=== PATIENT | male | born 1985 | race Caucasian/White ===

== ENCOUNTER 2021-05-20 20:51 | Emergency (ER) | payer BC ==
[~2021-05-20] VITALS: Ht 177.8 cm; Wt 100.0 kg
[2021-05-20 21:18] VITALS: TEMP 98.1
[2021-05-20] MEDS ORDERED: PREDNISONE50 MG PO (22:32)
[2021-05-20 22:54] VITALS: BP 111/75; PULSE 74
== END 2021-05-20 22:54 | disposition home or self-care (01) ==
LOC: COL.ER 20:51
DX: S39.012A Strain of muscle, fascia and tendon of lower back, initial encounter (principal); X50.9XXA Other and unspecified overexertion or strenuous movements or postures, initial encounter
CPT/HCPCS: J7512